=== PATIENT | female | born 1940 | race Caucasian/White ===

== ENCOUNTER 2018-01-27 14:16 | Observation (INO) | payer MEDICARE, OTHER ==
[~2018-01-27] VITALS: Ht 175.3 cm; Wt 86.4 kg
[2018-01-27 14:55] LABS: BASOPHILS % (AUTO) 0.7 % (0.0-5.0); EOSINOPHILS % (AUTO) 0.5 % (0.0-8.0); LYMPHOCYTES % (AUTO) 10.4 % (21.0-51.0); MEAN CORPUSCULAR HEMOGLOBIN 26.3 pg (27.0-33.0); MEAN CORPUSCULAR HGB CONC 31.9 g/dL (32.0-36.0); MEAN CORPUSCULAR VOLUME 82.4 fL (79-99); MONOCYTES % (AUTO) 6.5 % (3.0-13.0); NEUTROPHILS % (AUTO) 81.9 % (40.0-77.0); NUCLEATED RED BLOOD CELLS 0.1 % (0.0-0.19); PLATELET COUNT (AUTO) 430 K/uL (130-400); RED BLOOD CELL COUNT(AUTO) 2.51 MIL/uL (4.00-5.50); RED CELL DISTRIBUTION WIDTH 18.1 % (11.0-15.5); WHITE BLOOD COUNT (AUTO) 8.3 K/uL (4.8-10.8)
[2018-01-27 15:05] LABS: HEMATOCRIT 20.7 % (36-48); POTASSIUM 4.5 mmol/L (3.5-5.1)
[2018-01-27 15:10] LABS: ALBUMIN 3.6 g/dL (3.5-5.0); BILIRUBIN,TOTAL 0.3 mg/dL (0.2-1.0); TOTAL PROTEIN, SERUM 6.8 g/dL (6.0-8.3)
[2018-01-27] MEDS ORDERED: ACETAMINOPHEN 325 MG TAB PO PRN (15:30)
[2018-01-27] MEDS ORDERED: ONDANSETRON HCL 4 MG/2 ML VIAL IV PRN (15:30)
[2018-01-27 15:32] LABS: INR 0.96 (0.85-1.15); PARTIAL THROMBOPLASTIN TIME 23.6 SEC (26.3-35.5); PROTHROMBIN TIME 10.1 SEC (9.6-11.6)
[2018-01-27 16:12] LABS: % IRON SATURATION 6.6 % (22-44)
[2018-01-27] MEDS ORDERED: SODIUM CHLORIDE 0.9% 500ML 500 ML IV ONE (17:02)
[2018-01-27] MEDS ORDERED: LORATADINE 10 MG TABLET ONE (17:13)
[2018-01-27] MEDS ORDERED: DIPHENHYDRAMINE HCL 25 MG CAPSULE ONE (17:15)
[2018-01-27] MEDS ORDERED: ACETAMINOPHEN 325 MG TAB ONE (17:48)
[2018-01-27] MEDS ORDERED: ACETAMINOPHEN 325 MG TAB PO ONE (18:00)
[2018-01-27] MEDS ORDERED: DIPHENHYDRAMINE HCL 25 MG CAPSULE PO SCH (18:00)
[2018-01-27] MEDS ORDERED: LORATADINE 10 MG TABLET PO SCH (18:00)
[2018-01-27 18:33] VITALS: BP 138/74
[2018-01-27] MEDS ORDERED: HYDR12.530 PO (19:14)
[2018-01-27] MEDS ORDERED: TRAM50TA4 PO (19:14)
[2018-01-27] MEDS ORDERED: ACYC800T PO (19:14)
[2018-01-27] MEDS ORDERED: ROSU5TAB PO (19:14)
[2018-01-27] MEDS ORDERED: MULT-264 PO (19:14)
[2018-01-27] MEDS ORDERED: FISH1CAP20 PO (19:14)
[2018-01-27] MEDS ORDERED: AMLO5TAB7 PO (19:14)
[2018-01-27] MEDS ORDERED: TERI2.4P SQ (19:14)
[2018-01-27] MEDS ORDERED: VALS320T2 PO (19:14)
[2018-01-27] MEDS ORDERED: GABA-529 PO (19:14)
[2018-01-27 20:00] VITALS: BP 137/74
[2018-01-27] MEDS ORDERED: TRAMADOL HCL 50 MG TABLET PO PRN (20:00)
[2018-01-27] MEDS ORDERED: AMLODIPINE BESYLATE 5 MG TAB PO SCH (21:00)
[2018-01-27] MEDS: ACYCLOVIR 800 MG TABLET PO SCH (22:24)
[2018-01-27] MEDS: GABAPENTIN 100 MG CAPSULE PO SCH (22:24)
[2018-01-27 23:35] VITALS: BP 118/69
[2018-01-28 04:00] VITALS: BP 121/64
[2018-01-28 04:12] LABS: HEMATOCRIT 24.8 % (36-48); MEAN CORPUSCULAR HEMOGLOBIN 26.6 pg (27.0-33.0); MEAN CORPUSCULAR HGB CONC 32.5 g/dL (32.0-36.0); NUCLEATED RED BLOOD CELLS 0.1 % (0.0-0.19); PLATELET COUNT (AUTO) 309 K/uL (130-400); RED BLOOD CELL COUNT(AUTO) 3.03 MIL/uL (4.00-5.50); WHITE BLOOD COUNT (AUTO) 8.6 K/uL (4.8-10.8)
[2018-01-28 07:30] VITALS: BP 132/65
[2018-01-28] MEDS ORDERED: MULTIVITAMIN TABLET PO SCH (09:00)
[2018-01-28] MEDS ORDERED: HYDROCHLOROTHIAZIDE 25 MG TABLET PO SCH (09:00)
[2018-01-28] MEDS ORDERED: TERIPARATIDE 20 MCG SQ SCH (09:00)
[2018-01-28] MEDS ORDERED: FISH OIL 1000 MG/CAP PO SCH (09:00)
[2018-01-28] MEDS ORDERED: FAMOTIDINE/PF 20 MG/2 ML VIAL IV SCH (09:00)
[2018-01-28] MEDS: ACYCLOVIR 800 MG TABLET PO SCH (09:32)
[2018-01-28] MEDS: GABAPENTIN 100 MG CAPSULE PO SCH (09:32)
[2018-01-28 11:00] VITALS: BP 137/81
== END 2018-01-28 11:40 | disposition home or self-care (01) ==
LOC: EDH 14:16 → EDHIP 15:24 → 3DH 18:04
PROVIDERS: ADMIT Internal Medicine; ATTEND Internal Medicine
DX: D64.9 Anemia, unspecified (principal); I77.6 Arteritis, unspecified; E78.5 Hyperlipidemia, unspecified; E11.9 Type 2 diabetes mellitus without complications; I10 Essential (primary) hypertension; J44.9 Chronic obstructive pulmonary disease, unspecified; G30.9 Alzheimer's disease, unspecified; F02.80 Dementia in other diseases classified elsewhere, unspecified severity, without behavioral disturbance, psychotic disturbance, mood disturbance, and anxiety; Z86.718 Personal history of other venous thrombosis and embolism; I67.1 Cerebral aneurysm, nonruptured; Z80.52 Family history of malignant neoplasm of bladder; Z80.7 Family history of other malignant neoplasms of lymphoid, hematopoietic and related tissues; Z82.3 Family history of stroke; Z87.891 Personal history of nicotine dependence; Z90.710 Acquired absence of both cervix and uterus; Z96.642 Presence of left artificial hip joint; Z79.01 Long term (current) use of anticoagulants
CPT/HCPCS: 36415 ×2; 36430; 80053; 83540; 83550; 85025; 85027; 85610; 85730; 86850; 86900; 86901; 86922 ×2; 93005; 96374; 99284; A4600; G0378 ×20; J3490; J7040; P9016 ×2; Q0163

== ENCOUNTER → 2018-04-22 | Outpatient (CLI) | payer MEDICARE, OTHER ==
[~2018-04-22] MED LIST: ACYC400T PO; AMLO5TAB9 PO; CYAN100099 PO; FISH1CAP20 PO; GABA-529 PO; HYDR12.530 PO; MULT-264 PO; PANT40TA PO; PANT40TA25 PO; ROSU5TAB PO; TERI2.4P SQ; TRAM50TA4 PO; VALS320T2 PO
== END | disposition home or self-care (01) ==
LOC: RAH 08:42
PROVIDERS: ATTEND Internal Medicine Cardiovascular Disease
DX: I11.9 Hypertensive heart disease without heart failure (principal); I35.1 Nonrheumatic aortic (valve) insufficiency; I31.3 Pericardial effusion (noninflammatory)
CPT/HCPCS: 93306